=== PATIENT | male | born 1950 | race Caucasian/White ===

== ENCOUNTER → 2017-06-08 | Outpatient (CLI) | payer SELFPAY ==
[~2017-06-08] MED LIST: ACET325 PO; ASPI81CH; ASPI81CH PO; BUDE10.22 INH; CHOL10002 PO; DOCU100 PO; GABA300 PO; HALO5 PO; HYDACE5 PO; HYDCHL12.5 PO; MIRALAX17 GM PO; MIRT15 PO; Senna8.6 MG PO
[2017-06-08 15:37] LABS: Source, Urine Clean Catch
[2017-06-08 16:05] LABS: Appearance, Urine Clear (Clear); Bilirubin, Urine Neg (Neg); Blood, Urine Neg (Neg); Color, Urine Yellow (P-Yellow); Glucose Qualitative, Urine Neg (Neg); Ketones, Urine Neg (Neg); Leukocyte Esterase, Urine Neg (Neg); Nitrite, Urine Neg (Neg); Protein, Urine Neg (Neg); Urobilinogen, Urine NORM (Normal)
== END ==
LOC: LAB 15:35 → LAB SHORT 15:35
PROVIDERS: Nurse Practitioner Family
DX: N39.0 Urinary tract infection, site not specified (principal)
CPT/HCPCS: 81003

== ENCOUNTER 2017-12-13 16:46 | Emergency (ER) | payer OTHER ==
[~2017-12-13] VITALS: Ht 182.9 cm; Wt 72.6 kg
[~2017-12-13 16:46] MED LIST changes: -ACET325 PO; -ASPI81CH PO; -BUDE10.22 INH; -CHOL10002 PO; -DOCU100 PO; -GABA300 PO; -HALO5 PO; -HYDCHL12.5 PO; -MIRALAX17 GM PO; -MIRT15 PO; -Senna8.6 MG PO
[2017-12-13] MEDS ORDERED: GABA300 PO ×2 (17:06→17:09)
[2017-12-13] MEDS ORDERED: HYDCHL12.5 PO (17:07)
[2017-12-13] MEDS ORDERED: ACET325 PO (17:07)
[2017-12-13] MEDS ORDERED: CHOL10002 PO (17:07)
[2017-12-13] MEDS ORDERED: ASPI81CH PO (17:07)
[2017-12-13] MEDS ORDERED: BUDE10.22 INH (17:08)
[2017-12-13] MEDS ORDERED: DOCU100 PO (17:08)
[2017-12-13] MEDS ORDERED: MIRT15 PO (17:09)
[2017-12-13] MEDS ORDERED: HALO5 PO ×2 (17:10)
[2017-12-13] MEDS ORDERED: Senna8.6 MG PO (17:11)
[2017-12-13] MEDS ORDERED: MIRALAX17 GM PO (17:12)
[2017-12-13 17:14] LABS: BASOPHILS ABSOLUTE AUTO 0.04 K/mm3 (0.00-0.23); BASOPHILS PERCENT AUTO 1 % (0-2); EOSINOPHILS ABSOLUTE AUTO 0.03 K/mm3 (0.00-0.68); EOSINOPHILS PERCENT AUTO 0 % (0-6); Hematocrit 37.1 % (37.0-53.0); Hemoglobin 12.1 g/dL (13.5-17.5); IMMATURE GRAN ABSOLUTE AUTO 0.01 K/mm3 (0.00-0.10); IMMATURE GRAN PERCENT AUTO 0 % (0-1); LYMPHOCYTES ABSOLUTE AUTO 0.84 K/mm3 (0.84-5.20); LYMPHOCYTES PERCENT AUTO 12 % (21-46); MONOCYTES ABSOLUTE AUTO 0.71 K/mm3 (0.16-1.47); MONOCYTES PERCENT AUTO 10 % (4-13); Mean Corpuscular HGB 29.2 pg (26.0-34.0); Mean Corpuscular HGB Conc 32.6 g/dL (31.5-36.5); Mean Corpuscular Volume 89 fL (80-100); Mean Platelet Volume 11.2 fL (9.1-12.4); NEUTROPHILS ABSOLUTE AUTO 5.65 K/mm3 (1.96-9.15); NEUTROPHILS PERCENT AUTO 78 % (41-73); Platelet Count 214 K/mm3 (150-400); RDW Coefficient Variation 13.9 % (11.7-14.2); Red Blood Cell Count 4.15 M/mm3 (4.30-5.90); White Blood Cell Count 7.28 K/mm3 (4.00-11.30)
[2017-12-13 17:30] LABS: Alanine Aminotransfer (ALT/SGP 21 U/L (12-78); Albumin, Blood 3.7 g/dL (3.4-5.0); Albumin/Globulin Ratio 0.9 (0.8-1.8); Alk Phos 48 U/L (50-136); Anion Gap 10 mmol/L (6-16); Aspartate Aminotrans (AST/SGOT 20 U/L (12-37); Bilirubin, Total 0.5 mg/dL (0.1-1.0); Blood Urea Nitrogen 30 mg/dL (8-24); CO2, Blood 27 mmol/L (21-32); Calcium, Blood 9.1 mg/dL (8.5-10.1); Chloride, Blood 104 mmol/L (98-108); Creatinine, Blood 1.11 mg/dL (0.60-1.20); Globulin, Blood 4.1 g/dL (2.2-4.0); Glomerular Filtration Rate >60 (60-); Glucose, Blood 98 mg/dL (70-99); Sodium, Blood 141 mmol/L (136-145); Total Protein, Blood 7.8 g/dL (6.4-8.2)
[2017-12-13 17:57] LABS: Source, Urine Catheter
[2017-12-13 18:01] LABS: Appearance, Urine Clear (Clear); Bilirubin, Urine Neg (Neg); Blood, Urine Neg (Neg); Color, Urine Yellow (P-Yellow); Glucose Qualitative, Urine Neg (Neg); Ketones, Urine 1+ (Neg); Leukocyte Esterase, Urine Neg (Neg); Nitrite, Urine Neg (Neg); Protein, Urine 1+ (Neg); Urobilinogen, Urine NORM (Normal)
== END 2017-12-13 19:38 | disposition home or self-care (01) ==
LOC: ER 16:46
PROVIDERS: Physician Assistant
DX: R33.9 Retention of urine, unspecified (principal); F32.9 Major depressive disorder, single episode, unspecified; J44.9 Chronic obstructive pulmonary disease, unspecified; Z79.899 Other long term (current) drug therapy; Z79.82 Long term (current) use of aspirin
CPT/HCPCS: 51702; 51798; 80053; 83690; 85025; 93005; 93010; 99284-25